=== PATIENT | female | born 1990 | race Asian ===

== ENCOUNTER 2017-12-30 01:11 | Inpatient (IN) | payer OTHER ==
[2017-12-30] MEDS ORDERED: Penicillin G Potassium IV* 5,000,000 UNITS in NS 0.9% 100 ML* 100 ML IVPB ONE (06:53)
--- NOTE | 2017-12-30 07:02 | HP ---
General Information - General Information Maternal Age: 27 Grav: 1 Para: 0 SAB: 0 IEA: 0 Estimated Due Date: 12/24/17 Determined By: LMP Gestational Age in Weeks and Days: 40 Weeks and 6 Days Maternal Blood Type and Rh: O Positive - Results this Serology/RPR Result: Non-Reactive Rubella Result: Immune HBsAg Result: Negative HIV Result: Negative GBS Culture Result: Positive Past Medical History Delivery History: See Records Pertinent Past Medical History: See Records Pertinent Past Surgical History: None Pertinent Family History: Non-Contributory - Antepartal Records Antepartal Records: Reviewed, Uncomplicated Review of Systems Constitutional: Uncomfortable CV Complaint: No Respiratory: Shortness of Breath: No Gastrointestinal: No Nausea/Vomiting, Normal Bowel Movement Genitourinary: Leaking Fluid - Patient AROM after cervical exam a t 7am, clear fluid with particulate meconium., No Dysuria, No Bleeding Musculoskeletal: No Complaint Neurological: No Headache, No Visual Changes Movement: Normal Exam Allergies/Adverse Reactions: Allergies No Known Allergies Allergy (Verified 12/30/17 07:00) Efrain 98.6 BP 120/70 P 65 RR 16 Pox 99% RA Lab Values - Entire Visit: Laboratory Tests 12/30/17 01:30 Vag Amniotic Fld Detect Negative - Measurements Height: 4 ft 11.06 in Weight: 110 lb Weight in lbs: 110 Body Mass Index (BMI): 22.1 Pre- Weight: 90 lb 6.232 oz Weight Gained This : 19.610 lbs and 0.008 ozs - Exam Abdomen: No Upper Quadrant Pain Breast: Breast Exam Deferred CVA: No CVA Tenderness Extremities: No Edema Heart: Normal Rhythm/Heart Sounds HEENT: No Significant Findings Lungs: Clear Bilaterally Rectal: Rectal Exam Deferred Reflexes: DTR 2+ Thyroid: No Thyromegaly - Abdominal Exam Abdomen Exam: Non-Tender, Fundal Height Consistent with Dates - Ultrasound/Biophysical Profile Ultrasound Status: Not Done Targeted Exam Findings See L&D Outpatient Visit Provider Note for Findings: N/A Cervical Exam: 2cm Effacement: 50% Station: -1 Presenting Part: Vertex Membrane Status: SROM Amniotic Fluid Evaluation: Gross Rupture, Clear, Meconium Bleeding/Discharge: None EFM Findings - External Monitor Findings Baseline Heart Rate: 140 External Monitor Findings: Accelerations Present, No Pattern of Variable or Late Decelerations Contractions: Regular, Moderate, 45-90 Seconds Assessment/Plan - Reason for Visit Reason for Visit: at 40 6/7 weeks, Primigravida with SROM and regular contractions. - Obstetrical Risk Factors Obstetrical Risk Factors: GBS Positive - Plan Plan: Early Labor, Active Labor, Induction, IV Hydration, Antibiotic Prophylaxis - Date/Time of Admission Date of Admission: 12/30/17 Time of Admission: 07:15
[2017-12-30 07:23] LABS: ABS Basophils 0 10^3/ul (0-0.2); ABS Eosinophils 0 10^3/ul (0-0.6); ABS Monocytes 0.7 10^3/ul (0-0.8); ABS Neutrophils 5.9 10^3/ul (1.5-7.7); ABS Nucleated RBC 0 10^3/ul; Eosinophil % 0.5 % (0-6); Hematocrit 38 % (35-47); Hemoglobin 13.1 g/dl (12.0-16.0); Lymphocyte % 22.7 % (25-47); Mean Corpuscular HGB Conc 34 g/dl (31-36); Mean Corpuscular Hemoglobin 32 pg (27-31); Mean Corpuscular Volume 92 fL (80-97); Mean Platelet Volume 9.4 um3 (7.4-10.4); Nucleated Red Blood Cells % 0; Platelet Count 189 10^3/ul (150-450); Red Blood Count 4.13 10^6/ul (4.0-5.4); Red Cell Distribution Width 14 % (10.5-15); White Blood Count 8.7 10^3/ul (3.5-10.8)
[2017-12-30] MEDS ORDERED: Promethazine INJ(RESTRICTED)* 25 MG/ML 1 ML VIAL IV ONE ×2 (09:30→17:20)
[2017-12-30] MEDS: Nalbuphine* 20 MG/ML 1 ML VIAL IV PRN ×3 (09:54→16:36)
[2017-12-30] MEDS: Penicillin G Potassium IV* 2,500,000 UNITS in NS 0.9% 100 ML* 100 ML IVPB SCH ×3 (11:31→19:22)
[2017-12-30] MEDS ORDERED: Nalbuphine* 20 MG/ML 1 ML VIAL IV ONE ×2 (11:40→16:20)
[2017-12-30] MEDS ORDERED: Nalbuphine* 20 MG/ML 1 ML VIAL ONE ×2 (11:48→16:25)
[2017-12-30] MEDS ORDERED: Promethazine INJ(RESTRICTED)* 25 MG/ML 1 ML VIAL ONE (16:25)
[2017-12-30] MEDS ORDERED: Oxytocin in LR* 20 UNITS/1,000 ML BAG IVPB ONE (20:47)
[2017-12-30] MEDS ORDERED: Witch Hazel PAD* JAR TOPICAL PRN (21:22)
[2017-12-30] MEDS ORDERED: Acetaminophen TAB* 325 MG PO PRN (21:22)
[2017-12-30] MEDS ORDERED: Glycerin ADULT SUPP PR PRN (21:22)
[2017-12-30] MEDS ORDERED: Dibucaine 1% 28.35 GM TUBE PR PRN (21:22)
[2017-12-31] MEDS: Ibuprofen TAB* 600 MG PO PRN ×3 (01:26→20:18)
[2017-12-31 06:54] LABS: ABS Basophils 0.1 10^3/ul (0-0.2); ABS Eosinophils 0 10^3/ul (0-0.6); ABS Lymphocytes 1.4 10^3/ul (1.0-4.8); ABS Monocytes 1.3 10^3/ul (0-0.8); ABS Neutrophils 15.1 10^3/ul (1.5-7.7); ABS Nucleated RBC 0 10^3/ul; Eosinophil % 0 % (0-6); Hematocrit 30 % (35-47); Hemoglobin 10.1 g/dl (12.0-16.0); Lymphocyte % 7.7 % (25-47); Mean Corpuscular HGB Conc 34 g/dl (31-36); Mean Corpuscular Hemoglobin 31 pg (27-31); Mean Corpuscular Volume 91 fL (80-97); Mean Platelet Volume 9.4 um3 (7.4-10.4); Nucleated Red Blood Cells % 0; Platelet Count 156 10^3/ul (150-450); Red Blood Count 3.25 10^6/ul (4.0-5.4); Red Cell Distribution Width 14 % (10.5-15); White Blood Count 17.9 10^3/ul (3.5-10.8)
[2017-12-31] MEDS: Docusate CAP* 100 MG PO SCH ×3 (08:45→20:18)
[2017-12-31] MEDS ORDERED: Ferrous Gluconate TAB* 324 MG TAB PO SCH (09:00)
[2018-01-01] MEDS: Penicillin G Potassium IV* 2,500,000 UNITS in NS 0.9% 100 ML* 100 ML IVPB SCH ×3 (07:28→09:34)
[2018-01-01] MEDS: Simethicone TAB* 80 MG TAB.CHEW PO SCH (07:31)
[2018-01-01] MEDS: Docusate CAP* 100 MG PO SCH ×3 (11:21→21:35)
[2018-01-01] MEDS: Ibuprofen TAB* 600 MG PO PRN ×2 (11:21→21:34)
--- NOTE | 2018-01-01 14:02 | PTEDU ---
Patient Name: TAYLER DIAMOND TAYLER DIAMOND selected video: Never Ever Shake a Baby to view on 01[facility]01/2018 at 2:01:48 [id number]
--- NOTE | 2018-01-01 14:12 | PTEDU ---
Patient Name: TAYLER DIAMOND TAYLER DIAMOND selected video: Follow Me Mum: [employer] to Successful to view on 01/02/20 18 at 2:11:06 [id number]
[2018-01-01 22:45] VITALS: BP 127/77
== END 2018-01-01 22:27 | disposition home or self-care (01) | DRG 775 ==
LOC: MCHOBOUT 01:11 → MCHOB 06:50
PROVIDERS: ADMIT Obstetrics & Gynecology; ATTEND Obstetrics & Gynecology
PROC: 10D07Z6 Extraction of Products of Conception, Vacuum, Via Natural or Artificial Opening (ICD-10-PCS; principal; 2017-12-30)
PROC: 10907ZC Drainage of Amniotic Fluid, Therapeutic from Products of Conception, Via Natural or Artificial Opening (ICD-10-PCS; 2017-12-30)
PROC: 0W8NXZZ Division of Female Perineum, External Approach (ICD-10-PCS; 2017-12-30)
PROC: 4A1HXCZ Monitoring of Products of Conception, Cardiac Rate, External Approach (ICD-10-PCS; 2017-12-30)
DX: O48.0 Post-term pregnancy (principal); Z37.0 Single live birth; Z3A.40 40 weeks gestation of pregnancy; O99.824 Streptococcus B carrier state complicating childbirth; O77.0 Labor and delivery complicated by meconium in amniotic fluid
CPT/HCPCS: 36415; 84112; 85025; 86850; 86900; 86901; A9270-GY; J2300; J2540; J2550